=== PATIENT | female | born 1985 | race Two or more races ===

== ENCOUNTER 2021-04-16 23:13 | Emergency (ER) | payer SELFPAY ==
[~2021-04-16] VITALS: Ht 165.1 cm; Wt 108.5 kg
[~2021-04-16 23:13] MED LIST: FAMO-63 PO; PRED50TA PO
[2021-04-17 00:12] VITALS: BP 126/86
[2021-04-17] MEDS ORDERED: CHLORHEXIDINE 0.12% 15 ML MOUTHWASH. SWSP SCH (01:20)
[2021-04-17] MEDS ORDERED: HYDR-2763 PO (01:29)
[2021-04-17] MEDS ORDERED: CHLO473M MM (01:29)
[2021-04-17] MEDS ORDERED: HYDROcodone/APAP 7.5/325MG 1 TAB TABLET PO ONE (01:30)
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
== END 2021-04-17 01:45 | disposition home or self-care (01) ==
LOC: EEVIPCON 23:13 → ER 23:13
DX: S00.511A Abrasion of lip, initial encounter (principal); S09.93XA Unspecified injury of face, initial encounter; Y08.89XA Assault by other specified means, initial encounter; Y93.89 Activity, other specified; Y92.89 Other specified places as the place of occurrence of the external cause; Y99.8 Other external cause status
CPT/HCPCS: 99283